=== PATIENT | female | born 1980 | race American Indian/Alaskan Native ===

== ENCOUNTER 2017-07-23 21:25 | Emergency (ER) | payer OTHER ==
[2017-07-23 22:15] VITALS: BP 163/108
[2017-07-23] MEDS ORDERED: ASPIRIN PO ONE (22:16)
[2017-07-23 22:40] LABS: Basophils # (Auto) 0.1 K/mm3 (0.0-0.1); Eosinophils # (Auto) 0.1 K/mm3 (0.0-0.4); Eosinophils % (Auto) 1.1 % (0.0-4.3); Hematocrit 39.2 % (30.3-42.9); Lymphocytes # (Auto) 1.9 K/mm3 (1.2-5.4); Lymphocytes % (Auto) 24.3 % (13.4-35.0); Mean Corpuscular HGB Conc 33 % (30-34); Mean Corpuscular Hemoglobin 30 pg (28-32); Mean Corpuscular Volume 91 fl (79-97); Monocytes # (Auto) 0.7 K/mm3 (0.0-0.8); Monocytes % (Auto) 9.5 % (0.0-7.3); Platelet Count 283 K/mm3 (140-440); Red Blood Count 4.32 M/mm3 (3.65-5.03); Red Cell Distribution Width 14.1 % (13.2-15.2)
[2017-07-24 00:13] LABS: BUN/Creatinine Ratio 20; Blood Urea Nitrogen 10 mg/dL (7-17); Calcium 9.6 mg/dL (8.4-10.2); Hemolysis Index 45
== END 2017-07-23 22:53 | disposition left against medical advice (07) ==
LOC: ED 21:25
DX: R07.9 Chest pain, unspecified (principal); Z53.21 Procedure and treatment not carried out due to patient leaving prior to being seen by health care provider
CPT/HCPCS: 36415; 80048; 84484; 85025; 93005; 93010

== ENCOUNTER 2017-07-24 03:55 | Emergency (ER) | payer OTHER ==
[2017-07-24 10:29] VITALS: BP 167/97
--- NOTE | 2017-07-24 10:41 | Emergency Department Report ---
ED General Adult HPI - General Chief complaint: Chest Pain Stated complaint: HTN Time Seen by Provider: 07/24/17 09:40 Source: patient Mode of arrival: Ambulatory Limitations: No Limitations - History of Present Illness Initial comments: Ms. Smith is a 36-year-old healthy female with history of hypertension. While at work yesterday she felt mild headache with transient blurry vision. She then developed nondescript mild chest pain which lasted only a few moments. She is concerned that her blood pressure was elevated. She is taking hydrochlorothiazide. However she stopped taking lisinopril which has been managing her blood pressure. She was concerned about potential side effects including angioedema. She has not had any throat or tongue swelling. She is just being very cautious. She has been followed by her primary doctor regularly. She has had full physical exam including lab work due 3-4 months ago. She is currently symptom-free. She is just concerned about her high blood pressure at this time. Severity scale (0 -10): 0 - Related Data Previous Rx's Medication Instructions Recorded Last Taken Type Lisinopril [Prinivil] 10 mg PO DAILY 30 Days #30 tablet 07/24/17 Unknown Rx Allergies Allergy/AdvReac Type Severity Reaction Status Date / Time Penicillins Allergy Rash Verified 07/23/17 22:16 ED Review of Systems ROS: Stated complaint: HTN Other details as noted in HPI Comment: All other systems reviewed and negative Constitutional: denies: chills Respiratory: denies: cough Cardiovascular: chest pain ED Past Medical Hx - Past Medical History Hx Hypertension: Yes Additional medical history: L Br bx 2010, WNL - Surgical History Additional Surgical History: Breast Biopsy - Social History Smoking Status: Former Smoker Substance Use Type: None - Medications Home Medications: Home Medications Medication Instructions Recorded Confirmed Last Taken Type Lisinopril [Prinivil] 10 mg PO DAILY 30 Days #30 tablet 07/24/17 Unknown Rx ED Physical Exam - General Limitations: No Limitations General appearance: alert, in no apparent distress - Head Head exam: Present: atraumatic, normocephalic - Eye Eye exam: Present: normal appearance - ENT ENT exam: Present: mucous membranes moist - Neck Neck exam: Present: normal inspection - Respiratory Respiratory exam: Present: normal lung sounds bilaterally. Absent: respiratory distress, wheezes, rales, rhonchi - Cardiovascular Cardiovascular Exam: Present: regular rate, normal rhythm, normal heart sounds. Absent: bradycardia, tachycardia, systolic murmur, diastolic murmur, rubs, gallop - GI/Abdominal GI/Abdominal exam: Present: soft, normal bowel sounds. Absent: distended, tenderness, guarding, rebound - Extremities Exam Extremities exam: Present: normal inspection - Back Exam Back exam: Present: normal inspection - Neurological Exam Neurological exam: Present: alert, oriented X3 - Psychiatric Psychiatric exam: Present: normal affect, normal mood - Skin Skin exam: Present: warm, dry, intact, normal color. Absent: rash ED Course Vital Signs 07/24/17 07/24/17 05:51 10:20 Temperature 97.7 F Pulse Rate 88 79 Respiratory 16 18 Rate Blood Pressure 144/103 Blood Pressure 167/97 [Left] O2 Sat by Pulse 98 100 Oximetry ED Medical Decision Making - Lab Data Laboratory Results - last 24 hr 07/24/17 06:19 Troponin T < 0.010 Laboratory Results - last 72 hr 07/24/17 06:19 Troponin T < 0.010 Vital Signs - 24 hr 07/24/17 07/24/17 05:51 10:20 Temperature 97.7 F Pulse Rate 88 79 Respiratory 16 18 Rate Blood Pressure 144/103 Blood Pressure 167/97 [Left] O2 Sat by Pulse 98 100 Oximetry CBC and chemistry obtained on previous ED evaluation were reviewed. CBC and chemistry were normal with exception of a hemolyzed elevated potassium 5.2 - EKG Data 07/24/17 10:40 NSR nl rate nl axis nl intervals no ST-T signs of ischemia no ST elevation rate 70 beats a minute Time obtained 0613 Unchanged from recent EKG obtained 07/23/2017 21:13 - Medical Decision Making Mrs. Smith presents with hypertensive urgency. I strongly urged her to continue taking lisinopril. She is not having any adverse effects. I did educate her on the possible adverse effects of angioedema, cough and urticaria. I prescribed lisinopril 10 mg tablets 30 days prescription. Patient is currently symptom-free. Discharged home in stable condition. Critical care attestation.: If time is entered above; I have spent that time in minutes in the direct care of this critically ill patient, excluding procedure time. ED Disposition Clinical Impression: Hypertensive urgency Disposition: DC-01 TO HOME OR SELFCARE Is pt being admited?: No Does the pt Need Aspirin: No Condition: Stable Instructions: Hypertension (ED) Prescriptions: Lisinopril [Prinivil] 10 mg PO DAILY 30 Days #30 tablet Referrals: PRIMARY CARE,MD [Primary Care Provider] - 3-5 Days
== END 2017-07-24 10:51 | disposition home or self-care (01) ==
LOC: ED 03:55
DX: I16.0 Hypertensive urgency (principal); I10 Essential (primary) hypertension; Z87.891 Personal history of nicotine dependence; Z88.0 Allergy status to penicillin
CPT/HCPCS: 36415; 84484; 93005; 93010; 99282